=== PATIENT | female | born 1995 | race African-American/Black ===

== ENCOUNTER 2022-01-19 19:20 | Observation (INO) | payer BC, SELFPAY ==
--- NOTE | ~2022-01-19 | US_ITS ---
EXAMINATION: US pelvic complete w TV DATE: 01/19/2022 22:41 INDICATION: Vaginal bleeding. LMP 12/01/2021. Gestational age by LMP 7 weeks 0 days. ADRIAN by LMP 09/07/19 23. TECHNIQUE: Multiple transabdominal and endovaginal sonographic images of the pelvis were obtained. COMPARISON: None. FINDINGS: Uterus: 8.6 x 4.6 x 5.2 cm. Endometrial complex measures 1.7 cm. No intrauterine gestational sac. Right Ovary: 3.2 x 1.8 x 1.8 cm. Vascular flow is present. Gestational sac present in the right adnex a with a yolk sac and a pole, crown-rump length 0.94 cm corresponding to 7 weeks 0 days. heart rate 145 bpm. Left Ovary: 2.4 x 1.6 x 1.2 cm. Vascular flow is present. There is no free fluid in the pelvis. IMPRESSION: 1. Ectopic located in the right adnexa. 2. Single living fetus within the ectopic gestational sac, gestational age 7 weeks 0 days, hear t rate 145 BPM. 3. No intrauterine gestational sac. Results reported telephonically to Gibran Golden APRN by Dr. Starkey at 11:01 PM on 01/19/2022. Reviewed, dictated and finalized at location K. IMPRESSION: 1. Ectopic located in the right adnexa. 2. Single living fetus within the ectopic gestational sac, gestational age 7 we eks 0 days, heart rate 145 BPM. 3. No intrauterine gestational sac. Results reported telephonically to Gibran Golden APRN by Dr. Starkey at 11:01 PM on 01/19/2022.
[2022-01-19 19:57] VITALS: BP 123/89; PULSE 80; RESP 16; TEMP 36.5; O2SAT 100
[2022-01-19 20:18] LABS: Basophils Percent Auto 0.2 % (0.2-1.2); Eosinophils Absolute Auto 0.1 K/mm3 (0-0.3); Eosinophils Percent Auto 1.1 % (0-4.4); Hematocrit 37.1 % (37.0-47.0); Hemoglobin 12.3 g/dL (12.0-15.0); Immature Granulocyte Absolute 0.02 K/mm3 (0.00-0.031); Immature Granulocyte Percent A 0.2 % (0-0.5); Lymphocytes Absolute Auto 3.07 K/mm3 (0.9-3.2); Lymphocytes Percent Auto 31.3 % (18.3-44.2); Mean Corpuscular HGB Conc 33.2 g/dl (32-36); Mean Corpuscular Hemoglobin 31.1 pg (26-34); Mean Corpuscular Volume 93.9 fl (80-100); Mean Platelet Volume 9.3 fl (7.4-10.4); Monocytes Absolute Auto 0.4 K/mm3 (0.1-0.6); Monocytes Percent Auto 4.4 % (2.6-8.5); Neutrophils Absolute Auto 6.2 K/mm3 (1.3-6.7); Neutrophils Percent Auto 62.8 % (45.5-73.1); Platelet Count Result 318 k/mm3 (150-375); Red Blood Count 3.95 M/mm3 (4.2-5.4); Red Cell Distribution Width 13.2 % (11.5-14.5); White Blood Count 9.8 K/mm3 (4.5-10.0)
[2022-01-19 21:07] VITALS: BP 117/89; PULSE 76; RESP 21; O2SAT 100
--- NOTE | 2022-01-19 21:42 | ED.PREGNANCY ---
HPI - General Chief complaint: Vaginal Bleeding Stated complaint: , bleeding, cramping Time Seen by Provider: 01/19/22 21:04 History of Present Illness HPI Narrative: 19-year-old female presented to the emergency room for evaluation of lower abdominal cramping and possible vaginal bleeding. Patient states that she is 8 weeks , and noticed a 1 drop of bright red blood on her underwear earlier this afternoon. Patient states the cramping has resolved since she has been waiting in the waiting room. Patient reports she is receiving regular [facility] HE[facility] CLINICAL NURSE SPECIALIST care, and is currently on progesterone to thicken her uterine lining. Patient is a G3, P0. Related Data Allergies Allergy/AdvReac Type Severity Reaction Status Date / Time No Known Allergies Allergy Verified 01/19/22 20:01 Review of Systems Review of Systems: CONSTITUTIONAL: Denies fever, chills, or sweats. EYES: Denies visual changes, redness, or discharge. ENT: Denies rhinorrhea, congestion, sore throat, or otalgia. CARDIOVASCULAR: Denies chest pain, palpitations, or edema. RESPIRATORY: Denies cough or dyspnea. GASTROINTESTINAL: Denies abdominal pain, nausea, vomiting, or diarrhea. GENITOURINARY: Denies dysuria or hematuria. SKIN: Denies rash or itching. MUSCULOSKELETAL: Denies back pain, joint pain, or myalgia. NEUROLOGIC: Denies headache, numbness, dizziness, or weakness. PSYCHIATRIC: Denies anxiety or depression. Exam Narrative: GENERAL: Well-appearing, well-nourished, no physical limitations, and in no acute distress. HEAD: Normocephalic, atraumatic. EYES: Conjunctivae normal, PERRLA and EOMI. CHEST: Clear to auscultation. No respiratory distress. No wheezes rales or rhonchi. No tenderness. HEART: Regular rate and rhythm. No murmur heard. Normal peripheral pulses. ABDOMEN: Soft, nontender, nondistended, normal active bowel sounds. : Deferred BACK: No CVA tenderness EXTREMITIES: Normal range of motion. No edema. No clubbing or cyanosis SKIN: Warm, dry, no rash. No noted wounds NEURO: No focal deficits. Alert and oriented x3. MAEW. CN's II-XI intact bilaterally, normal gait PSYCH: Cooperative. Normal mood and affect. Course Vital Signs Vital signs: Vital Signs Temperature 36.5 C 01/19/22 19:57 Pulse Rate 80 01/19/22 19:57 Respiratory Rate 16 01/19/22 19:57 Blood Pressure 123/89 01/19/22 19:57 Pulse Oximetry 100 01/19/22 19:57 Oxygen Delivery Room Air 01/19/22 19:57 Temperature 36.5 C 01/19/22 19:57 Pulse Rate 75 01/20/22 01:11 Respiratory Rate 16 01/20/22 01:11 Blood Pressure 120/80 01/20/22 01:11 Pulse Oximetry 100 01/20/22 01:11 Oxygen Delivery Room Air 01/19/22 21:07 MDM - OB/Uterine Contractions MDM Narrative Medical decision making narrative: Discussed case with Dr. Moseley. He recommends patient be admitted for observation and he will follow-up with her in the morning about appropriate care. Discussed case with patient she is understanding and agreeable to the treatment plan. Lab Data Result diagrams: 01/19/22 20:07 Labs: Lab Results 01/19/22 01/19/22 01/19/22 Range/Units 20:07 20:07 23:12 WBC 9.8 (4.5-10.0) K/mm3 RBC 3.95 L (4.2-5.4) M/mm3 Hgb 12.3 (12.0-15.0) g/dL Hct 37.1 (37.0-47.0) % MCV 93.9 (80-100) fl MCH 31.1 (26-34) pg MCHC 33.2 (32-36) g/dl RDW 13.2 (11.5-14.5) % Plt Count 318 (150-375) k/mm3 MPV 9.3 (7.4-10.4) fl Immature Gran % (Auto) 0.2 (0-0.5) % Neut % (Auto) 62.8 (45.5-73.1) % Lymph % (Auto) 31.3 (18.3-44.2) % Cross % (Auto) 4.4 (2.6-8.5) % Eos % (Auto) 1.1 (0-4.4) % Baso % (Auto) 0.2 (0.2-1.2) % Lymph # (Auto) 3.07 (0.9-3.2) K/mm3 Cross # (Auto) 0.4 (0.1-0.6) K/mm3 Eos # (Auto) 0.1 (0-0.3) K/mm3 Baso # (Auto) 0.0 (0.0-0.1) K/mm3 Abs Immat Gran (auto) 0.02 (0.00-0.031) K/mm3 Absolute Neuts (auto) 6.2 (1.3-6.7) K/mm3 Absolute Nucleated R
[2022-01-20] VITALS (46 sets, daily range): BP systolic 98–146; BP diastolic 56–90; PULSE 71–104; RESP 14–29; TEMP 36.4–36.9; O2SAT 94–100
--- NOTE | 2022-01-20 02:00 | PC.NURSE ---
Pt and asked why they won't see Doctor tonlin and what is the point of staying over night. RN told patient and that she is stable condition but need to be cautious need to be observe over night. Dr. Moseley will come to see pt in AM to discussed treatment option. Pt and request to be sent home but want to see what doctor says. Called Dr. Moseley and made aware of pt request. Advised to stay over night and see him in AM or need to sign AMA. Spoke to Pt and explained purpose of her stay and Dr. Moseley will come to see her early this AM. Pt agreed to stay and verbalized understanding.
[2022-01-20] MEDS: SODIUM CHLORIDE 0.9% IV 1,000 ML 125 ML IV CONT ×2 (02:50→10:28)
--- NOTE | 2022-01-20 07:37 | PM.IMHP ---
H&P: HPI History of Present Illness Date/Time: 01/20/22 07:37 Chief Complaint: ectopic Narrative: 27 yo who presented to the ED with complaints of pelvic pain and vaginal spotting. Pt states she had a positive test earlier this month. She is a [employer] and states that at work she was moving a sign and noticed an acute onset right sided pelvic pain. She states the pain continued throughout the night. She then noticed an episode of vaginal spotting which prompted her to [place] [id number]. Pelvic US showed a right adnexal ectopic with embryo measuring 7w0d and FHT af 145 bpm. Pt remined hemodynamically stable. She states her pain has resolved. Review of Systems Cardiovascular: Cardiovascular: Denies chest pain, Denies leg edema, Denies palpitations, Denies dyspnea and Denies dyspnea on exertion Respiratory: Respiratory: Denies cough, Denies dyspnea and Denies dyspnea on exertion Gastrointestinal: Gastrointestinal: Denies abdominal pain, Denies constipation, Denies diarrhea, Denies nausea and Denies vomiting Genitourinary: Genitourinary: Denies hematuria, Denies urinary frequency, Denies dysuria, Denies pelvic pain, Denies urinary incontinence and Denies vaginal discharge Neurologic: Reports system reviewed and no additional complaints, except as documented Psychiatric: Psychiatric: Reports no additional psychiatric complaints Endocrine: Endocrine: Denies palpitations Meds Home Medications and Allergies Allergies Allergy/AdvReac Type Severity Reaction Status Date / Time No Known Allergies Allergy Verified 01/19/22 20:01 Vital Signs Vital Signs - 24 hr 01/19/22 19:57 01/19/22 21:07 01/20/22 00:54 Temperature 36.5 C Pulse Rate 80 76 72 Respiratory Rate 16 21 H 16 Blood Pressure 123/89 117/89 116/70 Pulse Oximetry 100 100 98 Oxygen Delivery Room Air Room Air 01/20/22 01:11 01/20/22 02:46 01/20/22 01:54 Temperature Pulse Rate 75 72 Respiratory Rate 16 16 Blood Pressure 120/80 120/80 Pulse Oximetry 100 100 Oxygen Delivery Room Air 01/20/22 01:58 01/20/22 07:34 Temperature Pulse Rate 74 82 Respiratory Rate Blood Pressure 117/72 121/69 Pulse Oximetry 100 Oxygen Delivery Exam Const: General: no acute distress Eyes: EOM: EOMs intact bilaterally Neck: Neck: supple Thyroid: thyroid normal Chest: Breast/axilla inspection: normal inspection of the breasts Breast/axilla palpation: normal palpation of the breasts, normal palpation of the axillae and no axillary lymphadenopathy Resp: Effort & Inspection: normal respiratory effort Auscultation: clear to auscultation bilaterally Cardio: Rate: regular rate Rhythm: regular rhythm GI: Inspection: non-distended GI Palp: Yes Soft to palpation, No Tenderness to palpation present (GI) and No Guarding due to palpation present (GI) Auscultation: normal bowel sounds : General: No bladder normal to palpation External Female Exam: normal external appearance Speculum Exam - Vagina: normal vaginal discharge and No vaginal bleeding Speculum Exam - Cervix: nontender Bimanual exam- vagina & uterus: No bladder normal to palpation and No Cervical tenderness present OB/external & speculum: No vaginal bleeding Skin: General skin exam: normal color and no rashes or lesions noted Neuro: Cognition (Neuro): normal cognition Speech: normal speech Extrem: General: normal to inspection and no edema Psych: Mental Status: mental status grossly normal Affect: normal affect H&P: Results Labs Labs: Short CBC 01/19/22 Range/Units 20:07 WBC 9.8 (4.5-10.0) K/mm3 Hgb 12.3 (12.0-15.0) g/dL Hct 37.1 (37.0-47.0) % Plt Count 318 (150-375) k/mm3 Assessment and Plan Assessment and plan (1) Ectopic of right ovary: Code(s): O00.201 - Right ovarian without intrauterine Status: Acute Assessment and Plan: P
--- NOTE | 2022-01-20 07:43 | WPDHPUPDATE1 ---
History and Physical Update Update Date/Time: 01/20/22 07:43 History and Physical has been reviewed, including an updated exam of the patient. There are NO changes in the patient's condition. Risks, benefits, and alternatives have been discussed and questions answered. Patient agrees to proceed with procedure.
[2022-01-20 08:01] LABS: Add Urine Microscopic? YES; Appearance Urine Clear (Clear); Bilirubin Urine Negative (Negative); Blood Urine Negative (Negative); Color Urine Yellow (Yellow); Glucose Urine UA Negative (Negative); Ketones Urine Negative (Negative); Leukocyte Esterase Ur 1+ LEU/UL (Negative); Nitrate Urine Negative (Negative); Protein Urine Negative (Negative); Urobilinogen Urine 0.2 mg/dL (<2.0)
[2022-01-20 08:10] LABS: Mucus Urine Rare /lpf; RBC Urine 0-2 /hpf (0-2); Squamous Epithelial Cell Urine Occasional /hpf (Few); WBC Urine 0-3 /hpf
--- NOTE | 2022-01-20 13:00 | PC.NURSE ---
Cleveland Lopez RN SHARE in to speak with patient and .
--- NOTE | 2022-01-20 13:38 | PC.NURSE ---
Patient to preop per stretcher with in attendance.
--- NOTE | 2022-01-20 14:28 | WPDANESEPPF ---
Anes - Initial Pre Proc Eval Procedure: Operation Date: 01/20/22 15:00 Proposed Procedures p Laparoscopic Removal Right Ectopic - Karlo Moseley MD Date/Time: 01/20/22 14:28 Surgeon: Karlo Moseley MD Pre Op Diagnosis: Ectopic Patient Data Age: 27 Gender: F Height: 1.57 m Weight: 77.11 kg Last Vital Signs Temp 36.8 C 01/20/22 13:47 Pulse 74 01/20/22 13:47 Resp 16 01/20/22 13:47 BP 100/73 01/20/22 13:47 Pulse Ox 100 01/20/22 13:47 O2 Del Method Room Air 01/20/22 13:47 Allergies Allergy/AdvReac Type Severity Reaction Status Date / Time No Known Allergies Allergy Verified 01/19/22 20:01 Laboratory Tests 01/19/22 01/19/22 01/19/22 20:07 20:07 23:12 WBC 9.8 K/mm3 K/mm3 (4.5-10.0) RBC 3.95 M/mm3 L M/mm3 (4.2-5.4) Hgb 12.3 g/dL g/dL (12.0-15.0) Hct 37.1 % % (37.0-47.0) MCV 93.9 fl fl (80-100) MCH 31.1 pg pg (26-34) MCHC 33.2 g/dl g/dl (32-36) RDW 13.2 % % (11.5-14.5) Plt Count 318 k/mm3 k/mm3 (150-375) MPV 9.3 fl fl (7.4-10.4) Immature Gran % (Auto) 0.2 % % (0-0.5) Neut % (Auto) 62.8 % % (45.5-73.1) Lymph % (Auto) 31.3 % % (18.3-44.2) Ritchie % (Auto) 4.4 % % (2.6-8.5) Eos % (Auto) 1.1 % % (0-4.4) Baso % (Auto) 0.2 % % (0.2-1.2) Lymph # (Auto) 3.07 K/mm3 K/mm3 (0.9-3.2) Ritchie # (Auto) 0.4 K/mm3 K/mm3 (0.1-0.6) Eos # (Auto) 0.1 K/mm3 K/mm3 (0-0.3) Baso # (Auto) 0.0 K/mm3 K/mm3 (0.0-0.1) Abs Immat Gran (auto) 0.02 K/mm3 K/mm3 (0.00-0.031) Absolute Neuts (auto) 6.2 K/mm3 K/mm3 (1.3-6.7) Absolute Nucleated RBC 0.0 K/mm3 K/mm3 (0.0-0.012) Nucleated RBC % 0.0 % % (0.0-0.2) Beta HCG, Quant 18824.00 mIU/ML mIU/ML Urine Color Urine Appearance Urine pH Ur Specific [place] Urine Protein Urine Glucose (UA) Urine Ketones Ur Blood (Man) Urine Nitrate Urine Bilirubin Urine Urobilinogen Leukocyte Esterase Rfl Urine RBC Urine WBC Ur Squamous Epith Cells Urine Mucus Blood Type O Positive Antibody Screen Negative Screen TNP Baby's Blood Type Not Reportable Baby's LYNNE Not Reportable Doses of RhIg Required 0 01/20/22 07:48 WBC RBC Hgb Hct MCV MCH MCHC RDW Plt Count MPV Immature Gran % (Auto) Neut % (Auto) Lymph % (Auto) Ritchie % (Auto) Eos % (Auto) Baso % (Auto) Lymph # (Auto) Ritchie # (Auto) Eos # (Auto) Baso # (Auto) Abs Immat Gran (auto) Absolute Neuts (auto) Absolute Nucleated RBC Nucleated RBC % Beta HCG, Quant Urine Color Yellow (Yellow) Urine Appearance Clear (Clear) Urine pH 6.0 (5.0-9.0) Ur Specific [place] 1.020 (1.001-1.035) Urine Protein Negative mg/dL mg/dL (Negative) Urine Glucose (UA) Negative mg/dL mg/dL (Negative) Urine Ketones Negative mg/dL mg/dL (Negative) Ur Blood (Man) Negative (Negative) Urine Nitrate Negative (Negative) Urine Bilirubin Negative (Negative) Urine Urobilinogen 0.2 mg/dL mg/dL (<2.0) Leukocyte Esterase Rfl 1+ PRESLEY/UL H PRESLEY/UL (Negative) Urine RBC 0-2 /hpf /hpf (0-2) Urine WBC 0-3 /hpf /hpf Ur Squamous Epith Cells Occasional /hpf /hpf (Few) Urine Mucus Rare /lpf /lpf Blood Type Antibody Screen Screen Baby's Blood Type Baby's LYNNE Doses of RhIg Required Patient hx anesthe
[2022-01-20] MEDS: LIDO 1%/EPINEPHRINE/PF 1:200,000 30 ML VIAL XX (15:16)
--- NOTE | 2022-01-20 16:22 | W.PM.PROC2 ---
Procedure Note - Detailed Date of Procedure 01/20/22 Pre-op Diagnosis Ectopic Post-op Diagnosis Same Procedure Performed right salpingectomy removal of right ectopic Surgeon Karlo Moseley MD Anesthesia General Indications right adnexal ectopic Findings Omental adhesions to the left pelvic sidewall at the level of the pelvic brim, right tubal ectopic , right ovary with corpus luteum cyst, left fallopian tube and ovary appear normal. Decidual change covering the uterine serosa Description of Procedure The patient was taken to the operating room where general endotracheal anesthesia was undertaken and found to be adequate. She was then prepped and draped in the dorsal lithotomy position and placed in adjustable stirrups. A pre-operative team brief and a time out were completed. A catheter was placed to drain the bladder. Retractors were placed placed in the vagina and the cervix was identified. An acorn uterine manipulator was placed. Attention was then turned to the abdomen which was anesthetized umbilically with injected anesthestic. A 10 mm skin incision was made in the umbilicus. A 5 mm optical trocar was then placed with direct camera visualization of the abdominal layers during placement. The trocar stylet was removed and the camera was used to verify intra-abdominal placement. CO2 insufflation was then connected and resumed. The pelvis was inspected. A left lower quadrant 5 mm port was placed, in addition to a right lower quadrant 5 mm port in the standard fashion after using local anesthetic. The pelvis was inspected. The above findings were noted. Omental adhesions were taken down to help identify the left adnexa. The right tubal was noted in the isthmic portion of the tube. Decision was made to attempt right salpingostomy. A linear incision was made along the rigth fallopian tube over the ectopic with monopolar scissors. The edge of the incision was grasped for stability. The was grasped and removed from the fallopian tube. The products of conception were removed from the abdomen and sent for pathology. The bed of the within the fallopian tube mucosa was noted to be bleeding. Hemostasis was attempted with monopolar cautery. After several attempts, the fallopian tube bed continued to bleeding. Given the amount of the bleeding and the tortuous course of the fallopian tube, decision was made to proceed with salpingectomy. The right fallopian tube was grasped at the level of the fimbriae. The fallopian tube was ligated and transected along the inferior mesosalpinx with a Ligasure device. The transection was carried out to the uterus. The fallopian tube was completely transected at the level of the uterine body. The surgical field was thoroughly irrigated using normal saline. All surgical beds were noted to be hemostatic. A Quan-Marv with Vicryl suture was used to close the umbilical 10 mm port under direct visualization. The abdomen was relieved of all CO2 gas. All remaining trocars were removed from the abdomen. Sponge, lap and needle counts were correct. All skin incisions were closed with 4-0 Vicryl suture subcuticularly. The uterine manipulator was removed from the uterus. Hemostasis of the cervix was noted. The patient was taken out of dorsal lithotomy position. Anesthesia was reversed. The patient was taken to the PACU. Estimated Blood Loss 150 Urine Output 100 Pathology Yes (right fallopian tube and products of conception) Complications No immediate complications Condition Stable Disposition PACU
[2022-01-20] MEDS: LACTATED RINGERS 1,000 ML 30 ML IV CONT ×2 (16:25)
[2022-01-20] MEDS: fentaNYL CITRATE INJ (*CRX) 100 MCG/2 ML VIAL 25 MCG IV PUSH ×8 (16:42→17:35)
--- NOTE | 2022-01-20 17:57 | PC.NURSE ---
Pt back from PACU. Assisted into bed.
--- NOTE | 2022-01-20 18:08 | PC.NURSE ---
Pt has tolerated water well in PACU. Pt c/o being hungry. Juice and a box lunch given to pt.
--- NOTE | 2022-01-20 18:14 | PC.NURSE ---
Pt became nauseated after drinking the juice from her fruit cup. Pt turned to right side and head of bed lowered.
--- NOTE | 2022-01-20 18:20 | PC.NURSE ---
Pt feeling better. [place] given.
--- NOTE | 2022-01-20 18:35 | PC.NURSE ---
Dr. Moseley informed of pt's nausea after trying to eat and pain is starting to return. Order received for Paul.
[2022-01-20] MEDS: HYDROcodone/acetaminophen (*CRX) 5-325 MG TABLET 1 TAB PO (18:48)
[2022-01-20] MEDS: ONDANSETRON HCL ODT 4 MG TABLET PO (18:49)
--- NOTE | 2022-01-22 07:19 | PM.DS ---
DS: Admitting Diagnosis Discharge Date 01/20/22 Admitting Diagnosis ectopic DS: Summary Hospital Course Hospital Course: 27 yo who was admitted after diagnosed with a right adnexal ectopic in the ED. Pt went on to have a laparoscopic right slapingectomy and removal of ectopic . Post operative course was uncomplicated and she was discharged the same day Time Spent with Patient Time attestation: Total time spent providing and/or coordinating discharge services: DS: Data Data Completed and Pending Pending studies at discharge: Pending at discharge 01/20/22 16:17 Surgical [PTH] Routine Surgical [PTH] Routine Discharge Plan Discharge Consulting providers: Vishal Stover ; Tu Starkey Discharging Clinician: Karlo Moseley Patient Disposition: Home, Self-Care Activity: as tolerated and pelvic rest Diet: regular Patient Instructions: Antibiotic Form, Ectopic (DC), Salpingectomy (DC) Stand Alone Forms: General Discharge Information, Work/School Release IP Follow-up/Referrals: Karlo Moseley MD [Physician] - 2 Weeks Discharge Medications: New hydrocodone-acetaminophen 5-325 mg tablet 1 tablet PO Q6H PRN (Reason: pain) Qty: 28 0RF ibuprofen 600 mg tablet 600 mg PO Q6H PRN (Reason: pain) Qty: 30 0RF Date of admission: 01/20/22 00:46 Primary Care Provider: PHYSICIAN NOT ON STAFF,NONSTAFF Admitting Provider: Karlo Moseley Attending physician on admission: Karlo Moseley Condition: Stable
== END 2022-01-20 20:00 | disposition home or self-care (01) ==
LOC: ANHED 01-20 00:49 → ANHOBPP 01-20 01:05
PROVIDERS: Emergency Medicine; Admitting Provider Student in an Organized Health Care Education/Training Program; Emergency Provider Nurse Practitioner Family; Visit Provider Student in an Organized Health Care Education/Training Program
PROC: (CPT 49320; principal; 2022-01-20 15:00)
DX: O00.201 Right ovarian pregnancy without intrauterine pregnancy (principal); Z3A.08 8 weeks gestation of pregnancy
CPT/HCPCS: 59151; 36415; 76830; 76856; 81001; 84702; 85025; 85461; 88302; 88305; 96360; 96361; 99285; A9270; G0378; J0330; J1100; J1170; J2250; J2405; J2704; J3010; J7030; J7120

== ENCOUNTER 2022-04-01 07:39 | Emergency (ER) | payer BC, SELFPAY ==
--- NOTE | ~2022-04-01 | XR_ITS ---
EXAMINATION: XR abdomen/kub 1V INDICATION: Abdominal pain TECHNIQUE: Supine views of the abdomen were obtained on 2 radiographs. COMPARISON: None FINDINGS: Visualization of the mid abdomen is obscured by jewelry. There is a moderate volume of colo cornelia stool. No dilated loops of bowel are seen. The visualized osseous structures are unremarkable. IMPRESSION: 1. Moderate volume of colonic stool. Reviewed, dictated and finalized at location B.
--- NOTE | ~2022-04-01 | CT_ITS ---
EXAMINATION: CT abdomen pelvis w con DATE: 04/01/2022 10:42 INDICATION: Left lower quadrant abdominal pain. TECHNIQUE: Computed tomography (CT) of the abdomen and pelvis was performed with 100 mL Omnipaque 350 intravenous contrast. Automated exposure control and iterative reconstruction technique were employe d. The dose-length product was 386.16 mGy-cm. COMPARISON: None. FINDINGS: The visualized portions of the lung bases demonstrate mild atelectasis. No pleural effusion . The heart size is normal. No pericardial effusion. The liver, gallbladder, spleen, pancreas, adrena l glands, and kidneys are normal. There are no dilated loops of bowel. The appendix is normal. There are no pathologically enlarged lymph nodes. There is a 2.5 cm dominant follicle in left ovary. There is physiologic fluid in the pelvis. There is mild lumbar spondylosis. IMPRESSION: 1. No specific etiology for the patient's symptoms. Reviewed, dictated and finalized at location A.
[2022-04-01 07:54] VITALS: BP 112/83; PULSE 64; RESP 14; TEMP 36.1; O2SAT 100
[2022-04-01 08:04] LABS: Basophils Percent Auto 0.1 % (0.2-1.2); Eosinophils Absolute Auto 0.1 K/mm3 (0-0.3); Eosinophils Percent Auto 0.6 % (0-4.4); Hematocrit 37.8 % (37.0-47.0); Hemoglobin 12.3 g/dL (12.0-15.0); Immature Granulocyte Absolute 0.02 K/mm3 (0.00-0.031); Immature Granulocyte Percent A 0.3 % (0-0.5); Lymphocytes Absolute Auto 2.55 K/mm3 (0.9-3.2); Lymphocytes Percent Auto 32.3 % (18.3-44.2); Mean Corpuscular HGB Conc 32.5 g/dl (32-36); Mean Corpuscular Hemoglobin 31.2 pg (26-34); Mean Corpuscular Volume 95.9 fl (80-100); Mean Platelet Volume 9.3 fl (7.4-10.4); Monocytes Absolute Auto 0.4 K/mm3 (0.1-0.6); Monocytes Percent Auto 5.1 % (2.6-8.5); Neutrophils Absolute Auto 4.9 K/mm3 (1.3-6.7); Neutrophils Percent Auto 61.6 % (45.5-73.1); Platelet Count Result 316 k/mm3 (150-375); Red Blood Count 3.94 M/mm3 (4.2-5.4); Red Cell Distribution Width 13.5 % (11.5-14.5); White Blood Count 7.9 K/mm3 (4.5-10.0)
[2022-04-01 08:21] LABS: Alanine Aminotransferase 16 U/L (6-35); Albumin Level 4.4 g/dL (3.5-5.1); Alkaline Phosphatase 65 U/L (38-126); Anion Gap 10 mmol/L (8-16); Aspartate Amino Transferase 26 U/L (14-36); Bilirubin,Total 0.5 mg/dL (0.2-1.3); Blood Urea Nitrogen 14 mg/dL (7-17); Calcium 9.1 mg/dL (8.4-10.2); Carbon Dioxide 26 mmol/L (22-30); Chloride 103 mmol/L (98-107); Estimated CRCL calculation 70 ml/min; Estimated Glomerular Filt Rate > 60; Glucose 83 mg/dL (65-110); Lipase 39 U/L (23-300); Sodium 139 mmol/L (137-145)
--- NOTE | 2022-04-01 08:29 | ED.GENADULT ---
HPI - General Adult General Chief complaint: Abdominal Pain Stated complaint: llq abd pain, previous surgery on fallop. tube Time Seen by Provider: 04/01/22 07:47 History of Present Illness HPI narrative: 27-year-old female presented the emergency department for evaluation of left lower quadrant pain. Patient states that she had an ectopic in January. Patient had lower abdominal pain in February which turned to be constipation. Patient states that her last bowel movement was approximately 1 to 2 weeks ago. Patient states this is not that unusual for her. Related Data Allergies Allergy/AdvReac Type Severity Reaction Status Date / Time No Known Allergies Allergy Verified 01/19/22 20:01 Review of Systems Review of Systems: CONSTITUTIONAL: Denies fever, chills, or sweats. EYES: Denies visual changes, redness, or discharge. ENT: Denies rhinorrhea, congestion, sore throat, or otalgia. CARDIOVASCULAR: Denies chest pain, palpitations, or edema. RESPIRATORY: Denies cough or dyspnea. GASTROINTESTINAL: Left lower quadrant pain, constipation GENITOURINARY: Denies dysuria or hematuria. SKIN: Denies rash or itching. MUSCULOSKELETAL: Denies back pain, joint pain, or myalgia. NEUROLOGIC: Denies headache, numbness, or weakness. [facility] Past Medical History Medical History (Updated 04/01/22 @ 10:59 by Scott Segundo MD) Obesity Exam Narrative: APPEARANCE: Well appearing, no pain, no distress, well-nourished. HEAD: normocephalic, atraumatic. EYES: PERRLA/EOMI, conjunctivae clear. NOSE: Normal no drainage THROAT: Pharynx clear, no exudate. NECK: Supple. No adenopathy, no masses. RESPIRATORY: Airway patent, respirations nonlabored. Clear to auscultation bilaterally, no rales, rhonchi, wheezing. CARDIOVASCULAR: Regular rate and rhythm without murmurs rubs or gallops. ABDOMINAL: Left lower quadrant abdominal tenderness to palpation. Normal bowel sounds. MUSCULOSKELETAL: Moves all extremities. Strength/ROM intact, No edema, No calf tenderness. NEURO: Alert. Cranial nerves II through XII intact. Grossly intact SKIN: Warm, dry. Normal Color Course Course Emergency Course: X-ray of the abdomen showed evidence of constipation. CT scan was ordered to rule out any postop complication. Labs are within normal limits. Patient was updated on the results of the CT scan and additional work-up. All questions and concerns were addressed. Vital Signs Vital signs: Vital Signs Temperature 97.0 F L 04/01/22 07:54 Pulse Rate 64 04/01/22 07:54 Respiratory Rate 14 04/01/22 07:54 Blood Pressure 112/83 04/01/22 07:54 Pulse Oximetry 100 04/01/22 07:54 Temperature 97.0 F L 04/01/22 07:54 Pulse Rate 64 04/01/22 07:54 Respiratory Rate 14 04/01/22 07:54 Blood Pressure 112/83 04/01/22 07:54 Pulse Oximetry 100 04/01/22 07:54 Medical Decision Making Vital Signs Vital Signs: Vital Signs Temperature 97.0 F L 04/01/22 07:54 Pulse Rate 64 04/01/22 07:54 Respiratory Rate 14 04/01/22 07:54 Blood Pressure 112/83 04/01/22 07:54 Pulse Oximetry 100 04/01/22 07:54 Temperature 97.0 F L 04/01/22 07:54 Pulse Rate 64 04/01/22 07:54 Respiratory Rate 14 04/01/22 07:54 Blood Pressure 112/83 04/01/22 07:54 Pulse Oximetry 100 04/01/22 07:54 Lab Data Lab results reviewed: Yes I reviewed the patient's lab results. Result diagrams: 04/01/22 08:00 04/01/22 08:00 Labs: Lab Results 04/01/22 04/01/22 04/01/22 Range/Units 08:00 08:00 10:16 WBC 7.9 (4.5-10.0) K/mm3 RBC 3.94 L (4.2-5.4) M/mm3 Hgb 12.3 (12.0-15.0) g/dL Hct 37.8 (37.0-47.0) % MCV 95.9 (80-100) fl MCH 31.2 (26-34) pg MCHC 32.5 (32-36) g/dl RDW 13.5 (11.5-14.5) % Plt Count 316 (150-375) k/mm3 MPV 9.3 (7.4-10.4) fl Immature Gran % (Auto) 0.3 (0-0.5) % Neut % (Auto) 61.6 (45.5-73.1) % Lymph % (Auto) 32.3 (18.3-44.2) % Mo
[2022-04-01] MEDS: SODIUM CHLORIDE 0.9% IV 1,000 ML 999 ML IV CONT (09:05)
[2022-04-01 10:29] LABS: Appearance Urine Clear (Clear); Bilirubin Urine Negative (Negative); Blood Urine Negative (Negative); Color Urine Yellow (Yellow); Glucose Urine UA Negative (Negative); Ketones Urine Negative (Negative); Leukocyte Esterase Ur Negative LEU/UL (Negative); Nitrate Urine Negative (Negative); Protein Urine Negative (Negative); Urobilinogen Urine 0.2 mg/dL (<2.0)
[2022-04-01 10:34] LABS: Add Urine Microscopic? NO
== END 2022-04-01 11:22 | disposition home or self-care (01) ==
PROVIDERS: Emergency Provider Emergency Medicine
DX: K59.00 Constipation, unspecified (principal); E66.9 Obesity, unspecified; Z68.30 Body mass index [BMI] 30.0-30.9, adult
CPT/HCPCS: 36415; 74018; 74177; 80053; 81003; 81025; 83690; 85025; 96360; 99284; J7030; Q9967

== ENCOUNTER 2023-09-22 11:03 | Outpatient (CLI) | payer OTHER, SELFPAY ==
[2023-09-22 12:34] LABS: HIV 1/2 Ab P24 Ag Result Negative (Negative)
[2023-09-22 13:08] LABS: Hepatitis B Surface Antigen Negative (Negative)
[2023-09-22 13:16] LABS: HAV RESULT Negative (Negative); Hepatitis B Core IgM Result Negative (Negative)
[2023-09-22 13:26] LABS: Hepatitis C Virus Antibody Negative (Negative)
[2023-09-23 15:12] LABS: Rapid Plasma Reagin Non-Reactive (NonReactive)
== END 2023-09-22 11:04 | disposition home or self-care (01) ==
LOC: ANHLAB 11:04
PROVIDERS: Visit Provider Student in an Organized Health Care Education/Training Program
DX: Z11.3 Encounter for screening for infections with a predominantly sexual mode of transmission (principal)
CPT/HCPCS: 36415; 80074; 86592; 86695; 86696; 86703; G0432

== ENCOUNTER 2024-01-31 11:46 | Outpatient (CLI) | payer OTHER, SELFPAY ==
[2024-01-31 12:55] LABS: HIV 1/2 Ab P24 Ag Result Negative (Negative)
[2024-01-31 16:12] LABS: Hepatitis B Surface Antigen Negative (Negative)
[2024-01-31 16:17] LABS: HAV RESULT Negative (Negative); Hepatitis B Core IgM Result Negative (Negative)
[2024-01-31 16:29] LABS: Hepatitis C Virus Antibody Negative (Negative)
[2024-01-31 19:09] LABS: Rapid Plasma Reagin Non-Reactive (NonReactive)
== END 2024-01-31 11:47 | disposition home or self-care (01) ==
LOC: ANHLAB 11:47
PROVIDERS: Visit Provider Student in an Organized Health Care Education/Training Program
DX: Z20.2 Contact with and (suspected) exposure to infections with a predominantly sexual mode of transmission (principal)
CPT/HCPCS: 36415; 80074; 86592; 86695; 86696; 86703; G0432

== ENCOUNTER 2024-03-27 02:02 | Emergency (ER) | payer OTHER, SELFPAY ==
[2024-03-27 02:10] VITALS: BP 132/80; PULSE 70; RESP 16; TEMP 36.4; O2SAT 100
--- NOTE | 2024-03-27 02:42 | ED.GENADULT ---
HPI - General Adult General Chief complaint: Skin/Abscess/Foreign Body Stated complaint: rash Time Seen by Provider: 03/27/24 02:15 History of Present Illness HPI narrative: This is a 29-year-old female presenting with itchy rash on the inside of her right arm. Rash started about 1 day ago. 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 Patient has no other complaints. No history of eczema. No known allergies. 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 Sibling No problems noted. Social History Social History Smoking status: Never smoker Second hand tobacco smoke exposure: Yes Alcohol intake: current Alcohol use details: occasional Substance use: never Substance use type: does not use Do You Feel Safe in your Home?: Yes Lack of Transportation: No Lack of Food: Never True Current Housing: I Have Housing Concerned About Future Housing: Decline to Answer Difficulty Paying Gas/Electric Bills: Decline to Answer Difficulty Paying for Meds: Decline to Answer Currently Unemployed: Decline to Answer Education: Bachelor's Degree Difficulty w/ Childcare or Family Care: No Living arrangements: alone Occupation/Education: occupation 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 Head: atraumatic. EYES: EOMI, NOSE: Atraumatic NECK: Trachea midline RESPIRATORY: No increased rate of breathing CARDIOVASCULAR: RRR, ABDOMINAL: Non-distended MUSCULOSKELETAl: No obvious deformities NEURO: Alert. Moving 4/4 extremities SKIN:: Several small hives to the inside of the right arm PSYCHIATRIC: Normal affect Course Vital Signs Vital signs: Vital Signs Temperature 97.6 F 03/27/24 02:10 Pulse Rate 70 03/27/24 02:10 Respiratory Rate 16 03/27/24 02:10 Blood Pressure 132/80 03/27/24 02:10 Pulse Oximetry 100 03/27/24 02:10 Oxygen Delivery Room Air 03/27/24 02:10 Temperature 97.6 F 03/27/24 02:10 Pulse Rate 70 03/27/24 02:10 Respiratory Rate 16 03/27/24 02:10 Blood Pressure 132/80 03/27/24 02:10 Pulse Oximetry 100 03/27/24 02:10 Oxygen Delivery Room Air 03/27/24 02:10 Medical Decision Making MDM Narrative Medical decision making narrative: -Course: 29-year-old female presenting with a small itchy rash inside her right arm. patient is concerned for scabies infection. She will be discharged with permethrin Benadryl and Zyrtec prescriptions. She can follow up with her primary care physician for further management -DDX includes but is not limited to: dermatitis, scabies, allergic reaction, eczema, bug bite -Interventions: Zyrtec -Shared decision making / Disposition: discharge -RX permethrin, Benadryl, Zyrtec Vital Signs Vital Signs: Vital Signs Temperature 97.6 F 03/27/24 02:10 Pulse Rate 70 03/27/24 02:10 Respiratory Rate 16 03/27/24 02:10 Blood Pressure 132/80 03/27/24 02:10 Pulse Oximetry 100 03/27/24 02:10 Oxygen Delivery Room Air 03/27/24 02:10
== END 2024-03-27 02:55 | disposition home or self-care (01) ==
PROVIDERS: Emergency Provider Emergency Medicine
DX: L50.9 Urticaria, unspecified (principal); E66.9 Obesity, unspecified; Z68.28 Body mass index [BMI] 28.0-28.9, adult; Z90.79 Acquired absence of other genital organ(s)
CPT/HCPCS: 99283

== ENCOUNTER 2024-09-01 12:55 | Outpatient (CLI) | payer OTHER, SELFPAY ==
--- NOTE | 2024-09-01 | ECHO_ITS ---
Patient Info Name: Nadia Donahue Age: 29 years : 1995 Gender: Female Ht: 62 in Wt: 162 lbs BSA: 1.82 m2 HR: 70 bpm BP: 100 / 80 mmHg Heart Rhythm: Sinus Rhythm Technical Quality: Excellent Exam Date: 09/01/2024 1:18 PM Exam Location: Echo Lab Patient Status: Outpatient Admit Date: 09/01/2024 Staff Ordering Physician: CristianAlex MD Zipper Setter: Denise Swain RDCS Attending Provider: Marina, Alex Spence MD Referring Physician: Cristian BAER; Exam Type: CA echo doppler color flow Study Info Indications - Murmur Complete two-dimensional, color flow and Doppler transthoracic echocardiogram is performed. Summary 1. Complete two-dimensional, color flow and Doppler transthoracic echocardiogram is performed. 2. Left ventricular chamber dimension is normal. 3. Left ventricular systolic function is normal, estimated at 60-65%. 4. The left ventricular diastolic function is normal. 5. E/e' 6 is not elevated. 6. There is trace mitral valve regurgitation. 7. There is trace tricuspid valve regurgitation. 8. No pulmonary hypertension, estimated pulmonary arterial systolic pressure is 38 mmHg. 9. There is trace pulmonic regurgitation. Left Ventricle Left ventricular chamber dimension is normal. Left ventricular systolic function is normal, estimated at 60-65%. The left ventricular diastolic function is normal. E/e' 6 is not elevated. Right Ventricle Right ventricular systolic function is normal and with normal TAPSE 2.1 cm. Right ventricular chamber dimension is normal. Left Atria Left atrial chamber dimension is normal. Right Atria Right atrial chamber dimension is normal. Aortic Valve The aortic valve is trileaflet. There is no aortic valve stenosis. There is no aortic valve regurgitation. Pulmonic Valve There is trace pulmonic regurgitation. Mitral Valve There is no mitral valve stenosis. There is trace mitral valve regurgitation. Tricuspid Valve There is trace tricuspid valve regurgitation. No pulmonary hypertension, estimated pulmonary arterial systolic pressure is 38 mmHg. Pericardium/Pleural There is no pericardial effusion. Inferior Vena Cava Normal inferior vena cava with >50% collapse upon inspiration consistent with normal right atrial pressure, 5 mmHg. Aorta The aortic root size at the sinus of Valsalva is normal. Left Ventricular Outflow Tract Name Value Normal LVOT 2D LVOT Diameter 1.8 cm LVOT Doppler LVOT Peak Gradient 6 mmHg LVOT Mean Gradient 3 mmHg LVOT VTI 27 cm LVOT VTI/AV VTI Ratio 1.0 LVOT Stroke Volume 70 ml LVOT CO 4.6 l/min LVOT CI 2.5 l/min/m2 Pulmonic Valve Name Value Normal PV Doppler PV Peak Gradient 4 mmHg PV Regurgitation Doppler ND Peak End Diastolic Velocity 90 cm/s Mitral Valve Name Value Normal MV Doppler MV Peak Gradient 5 mmHg MV Mean Gradient 2 mmHg MV Decel [place] 581 cm/s2 MV PHT 54 ms MV Area (PHT) 4.1 cm2 4.0-5.0 MV Area (Cont Eq VTI) 2.3 cm2 MV Regurgitation Doppler MR Peak Gradient 32 mmHg MV Diastolic Function MV E Peak Velocity 108 cm/s MV A Peak Velocity 46 cm/s MV E/A 2.4 MV Decel Time 186 ms MV Annular TDI MV E/e' (Septal) 6.6 <=8.0 MV E/e' (Lateral) 6.3 <=8.0 MV E/e' (Average) 6.5 Tricuspid Valve Name Value Normal TV Regurgitation Doppler TR Peak Velocity 287 cm/s TR Peak Gradient 25 mmHg Estimated PAP/RSVP RA Pressure 5 mmHg <=5 PA Systolic Pressure 38 mmHg <36 RV Systolic Pressure 38 mmHg <36 Aortic Valve Name Value Normal AV Doppler AV Peak Velocity 128 cm/s AV Peak Gradient 7 mmHg AV Mean Gradient 4 mmHg AV VTI 29 cm AV Area (Cont Eq VTI) 2.5 cm2 >=3.0 AV Area (Cont Eq Imtiaz) 2.4 cm2 AV Regurgitation 2D LVOT Area 2.6 cm2 Ventricles Name Value Normal LV Dimensions 2D/MM IVS Diastolic Thickness (2D) 0.6 cm 0.6-1.0 LVID Diastole (2D) 5.0 cm 3.8-5.2 LVIW Diastolic Thickness (2D) 0.7 cm 0.6-0.9 LVID Systole (2D) 3.5 cm 2.2-3.5 LVOT Diameter 1.8 cm LV Mass (2D Cubed) 105.50 g 67.00-162.00 LV Mass Index (2D Cubed) 58 g/m2 43-95 Relative Wall Thickness (2D) 0.29 LV Fractional Shortening/Ejection Fraction 2D/MM LV Fractional Shortening (2D) 30 % 27-45 LV EF (2D Teichgregorioz) 57 % 54-74 LV Diastolic Volume (4C MOD) 125 ml LV EF (4C MOD) 60 % LV Diastolic Length (4C) 8.0 cm LV Systolic Length (4C) 6.5 cm LV Stroke Volume (4C MOD) 75 ml Atria Name Value Normal LA Dimensions LA Volume (4C A-L) 49 ml RA Dimensions RA Area (4C) 19.4 cm2 <=18.0 Report Signatures
--- OUTSIDE RECORDS SUMMARY | 2024-09-01 12:59 | XMS_ITS | Patient Health Record ---
Author Organization [facility] [place] Address [address] [place] [address] Care Team Providers Care Forklift Picker Name Role Phone Edinson Ayala Unavailable [phone] ALLERGIES No Known Allergies REASON FOR REFERRAL No Information SOCIAL HISTORY Tobacco Use: Social History Observation Description Date Details (start date - stop date) Never Smoker NA - NA Sex Assigned At : Social History Observation Description Sex Assigned At Unknown Tobacco Use/Smoking Question Answer Notes Are you a nonsmoker PROBLEMS Problem Type ICD Code Onset Dates Problem Status W/U Status Risk SNOMED Code Notes Problem Cervicalgia (M54.2) Active confirmed Cervicalgia (69934574) Problem Herniated nucleus pulposus, C6-7 (M50.223) Active confirmed Displacement of cervical intervertebral disc without myelopathy (75130224) Problem Neck pain on right side (M54.2) Active confirmed Neck pain (80496656) PLAN OF TREATMENT No Information MEDICATIONS ADMINISTERED Medication Instructions Date of Administration Dosage Notes Bilateral C7 SNRI 08/24/2022 Right C7 SNRI 08/10/2022 MEDICAL (GENERAL) HISTORY Medical History History ICD Code high blood pressure bladder infections headaches irritable bowel syndrome
--- OUTSIDE RECORDS SUMMARY | 2024-09-01 12:59 | XMS_ITS | Data Portability ---
Author Organization [facility], Main Office Address [address] [place] [address] Assessment No assessment recorded. Plan of Treatment Reminders Order Date Submit Date Provider Last Modified By Organization Details Last Modified Time Details Appointments None recorded. Lab CBC w/ auto diff [address], [address] [place], [address], 4 12:36:46 CMP, serum or plasma [address], [address] [place], [address], 4 12:36:46 lipid panel, serum [address], [address] [place], [address], 4 12:36:46 TSH, serum or plasma 2024 025 [facility] (Lab), [address] [place], [address], 5 13:29:30 Referral None recorded. Procedures None recorded. Surgeries None recorded. Imaging US, echocardio gram 2023 024 [email or web address] [facility] [address], [address] [place], [address], 4 14:26:23 US, echocardio gram, transthora cic, complete - Please call patient to schedule. 2024 025 [facility], [address], [place], [address], 17:35:27 Medication Orders pantoprazo le 40 mg tablet,del ayed release 2023 024 [email or web address] [id number], [address], [place], [place], [id number], 12:04:08 Patient TargetsNo targets recorded. Patient InstructionsNo instructions recorded. Reason for Referral None Reported. Results Created Date Observation Date Name Description Value Unit Range Abnormal Flag Note LastModifiedBy Organization Detail LastModifiedTime 06/23/2006/23/2022 rapid flu (A+B) Flu A positi ve Not Available [facility] [address] [place], [address], 06/23/2022 16:51:42 06/23/20 22 06/23/2022 rapid flu (A+B) Flu B negati ve Not Available [facility] Internal [facility] [address] [place], [address], 06/23/2022 16:51:42 02/10/20 24 02/10/2024 CBC/C OMPLE TE BLD COUNT W/DIF F white blood cells 6.4 x10'3 /uL 4.2-10 .8 Not Available [facility] (Lab) [address] [place], [address], 02/10/2024 20:24:51 02/10/20 24 02/10/2024 CBC/C OMPLE TE BLD COUNT W/DIF F red blood cells 4.25 x10'6 /uL 3.80-5 .20 Not Available [facility] (Lab) [address] [place], [address], 02/10/2024 20:24:51 02/10/20 24 02/10/2024 CBC/C OMPLE TE BLD COUNT W/DIF F hemoglobin 13.6 g/dL 12.0-1 5.6 Not Available [facility] (Lab) [address] [place], [address], 02/10/2024 20:24:51 02/10/20 24 02/10/2024 CBC/C OMPLE TE BLD COUNT W/DIF F hematocrit 41.8 % 35.7-4 5.7 Not Available [facility] (Lab) [address] [place], [address], 02/10/2024 20:24:51 02/10/20 24 02/10/2024 CBC/C OMPLE TE BLD COUNT W/DIF F mean red cell volume 98.4 fL 82.0-9 9.0 Not Available [facility] (Lab) [address] [place], [address], 02/10/2024 20:24:51 02/10/20 24 02/10/2024 CBC/C OMPLE TE BLD COUNT W/DIF F mean red cell hemoglobin 32.0 pg 27.0-3 3.0 Not Available [facility] (Lab) [address] [place], [address], 02/10/2024 20:24:51 02/10/20 24 02/10/2024 CBC/C OMPLE TE BLD COUNT W/DIF F mean RBC HGB concentratio n 32.5 g/dL 31.0-3 6.0 Not Available [facility] (Lab) [address] [place], [address], 02/10/2024 20:24:51 02/10/20 24 02/10/2024 CBC/C OMPLE TE BLD COUNT W/DIF F red cell distribution width 13.3 % 11.8-1 5.5 Not Available [facility] (Lab) [address] [place], [address], 02/10/2024 20:24:51 02/10/20 24 02/10/2024 CBC/C OMPLE TE BLD COUNT W/DIF F platelets 330 x10'3 /uL 150-40 0 Not Available [facility] (Lab) [address] [place], [address], 02/10/2024 20:24:51 02/10/20 24 02/10/2024 CBC/C OMPLE TE BLD COUNT W/DIF F mean platelet volume 10.2 fL 9.0-12 .4 Not Available [facility] (Lab) [address] [place], [address], 02/10/2024 20:24:51 02/10/20 24 02/10/2024 CBC/C OMPLE TE BLD COUNT W/DIF F neutrophils 60.5 % 39.0-7 2.0 Not Available [facility] (Lab) [address] [place], [address], 02/10/2024 20:24:51 02/10/20 24 02/10/2024 CBC/C OMPLE TE BLD COUNT W/DIF F lymphocytes 32.6 % 16.0-4 7.0 Not Available [facility] (Lab) [address] [place], [address], 02/10/2024 20:24:51 02/10/20 24 02/10/2024 CBC/C OMPLE TE BLD COUNT W/DIF F monocytes 5.4 % 5.0-12 .0 Not Available [facility] (Lab) [address] [place], [address], 02/10/2024 20:24:51 02/10/20 24 02/10/2024 CBC/C OMPLE TE BLD COUNT W/DIF F eosinophils 1.1 % 1.0-7. 0 Not Available [facility] (Lab) [address] [place], [address], 02/10/2024 20:24:51 02/10/20 24 02/10/2024 CBC/C OMPLE TE BLD COUNT W/DIF F basophils 0.2 % 0.0-2. 0 Not Available [facility] (Lab) [address] [place], [address], 02/10/2024 20:24:51 02/10/20 24 02/10/2024 CBC/C OMPLE TE BLD COUNT W/DIF F immature granulocytes 0.2 % 0.00-0 .50 Not Available [facility] (Lab) [address] [place], [address], 02/10/2024 20:24:51 02/10/20 24 02/10/2024 CBC/C OMPLE TE BLD COUNT W/DIF F neutrophils, absolute count 3.90 x10'3 /uL 1.5-8. 0 Not Available [facility] (Lab) [address] [place], [address], 02/10/2024 20:24:51 02/10/20 24 02/10/2024 CBC/C OMPLE TE BLD COUNT W/DIF F lymphocytes, absolute count 2.10 x10'3 /uL 1.07-3 .43 Not Available [facility] (Lab) [address] [place], [address], 02/10/2024 20:24:51 02/10/20 24 02/10/2024 CBC/C OMPLE TE BLD COUNT W/DIF F monocytes, absolute count 0.35 x10'3 /uL 0.29-0 .99 Not Available [facility] (Lab) [address] [place], [address], 02/10/2024 20:24:51 02/10/20 24 02/10/2024 CBC/C OMPLE TE BLD COUNT W/DIF F eosinophils, absolute count 0.07 x10'3 /uL 0.02-0 .53 Not Available [facility] (Lab) [address] [place], [address], 02/10/2024 20:24:51 02/10/20 24 02/10/2024 CBC/C OMPLE TE BLD COUNT W/DIF F basophils, absolute count 0.01 x10'3 /uL 0.01-0 .08 Not Available [facility] (Lab) [address] [place], [address], 02/10/2024 20:24:51 02/10/20 24 02/10/2024 CBC/C OMPLE TE BLD COUNT W/DIF F immature granulocytes ,absolute 0.01 x10'3 /uL 0.00-0 .05 Not Available [facility] (Lab) [address] [place], [address], 02/10/2024 20:24:51 02/10/20 24 02/10/2024 CBC/C OMPLE TE BLD COUNT W/DIF F nucleated red blood cells 0.0 % -0 Not Available [facility] (Lab) [address] [place], [address], 02/10/2024 20:24:51 02/10/20 24 02/10/2024 CBC/C OMPLE TE BLD COUNT W/DIF F NRBC# 0.00 x10'3 /uL Not Available [facility] (Lab) [address] [place], [address], 02/10/2024 20:24:51 02/10/20 24 02/10/2024 COMPR EHENS HARRY METAB OLIC PANEL sodium 138 mmol/ L 137-14 5 Not Available [facility] (Lab) [address] [place], [address], 02/10/2024 20:33:27 02/10/20 24 02/10/2024 COMPR EHENS HARRY METAB OLIC PANEL potassium 4.4 mmol/ L 3.5-5. 1 Not Available [facility] (Lab) [address] [place], [address], 02/10/2024 20:33:27 02/10/20 24 02/10/2024 COMPR EHENS HARRY METAB OLIC PANEL chloride 107 mmol/ L 98-107 Not Available [facility] (Lab) [address] [place], [address], 02/10/2024 20:33:27 02/10/20 24 02/10/2024 COMPR EHENS HARRY METAB OLIC PANEL carbon dioxide 25 mmol/ L 22-30 Not Available [facility] (Lab) [address] [place], [address], 02/10/2024 20:33:27 02/10/20 24 02/10/2024 COMPR EHENS HARRY METAB OLIC PANEL anion gap 10.4 mmol/ L 14-22 low Not Available [facility] (Lab) [address] [place], [address], 02/10/2024 20:33:27 02/10/20 24 02/10/2024 COMPR EHENS HARRY METAB OLIC PANEL glucose 71 mg/dL 70-99 Not Available [facility] (Lab) [address] [place], [address], 02/10/2024 20:33:27 02/10/20 24 02/10/2024 COMPR EHENS HARRY METAB OLIC PANEL BUN 13 mg/dL 8-19 Not Available [facility] (Lab) [address] [place], [address], 02/10/2024 20:33:27 02/10/20 24 02/10/2024 COMPR EHENS HARRY METAB OLIC PANEL creatinine 1.05 mg/dL 0.66-1 .25 Not Available [facility] (Lab) [address] [place], [address], 02/10/2024 20:33:27 02/10/20 24 02/10/2024 COMPR EHENS HARRY METAB OLIC PANEL GFR >60 Refer ence Range : [place] ge GFR Healt hy Adult : >60 mL/mi n/1.7 3 m2 Chron ic Kidne y Disea se: 15-60 mL/mi n/1.7 3 m2 Kidne y Failu re: <15/m L/min /1.73 m2 www.n iddk. nih.g ov The MDRD study equat ion has not been valid ated in child krupa <18 years of age; pregn ant women ; the elder ly >85 years of age; or in some racia l or ethni c subgr oups, such as Hispa nics. Outsi de the valid ated ej eters , estim ated GFR is less accur ate, requi ring clini anay judgm ent on a case- by-ca se basis . Clini anay inter preta tion for other races and ages must be made by the clini dorota. The MDRD study equat ion has not been valid ated for the evalu ation of serum creat inine relat ed to nutri anton l statu s or medic ation usage . For perso ns <18 years of age, a pedia tric GFR calcu lator is avail able on the [facility] websi te: https ://genet garcía.alessandro lay/pr mohamud rankin s/kdo qi/gf r_cal culat or Not Available [facility] (Lab) [address] [place], [address], 02/10/2024 20:33:27 02/10/20 24 02/10/2024 COMPR EHENS HARRY METAB OLIC PANEL alkaline phosphatase 70 U/L 38-126 Not Available [facility] (Lab) [address] [place], [address], 02/10/2024 20:33:27 02/10/20 24 02/10/2024 COMPR EHENS HARRY METAB OLIC PANEL alanine aminotransfe rase 47 U/L 0-35 high Not Available [facility] (Lab) [address] [place], [address], 02/10/2024 20:33:27 02/10/20 24 02/10/2024 COMPR EHENS HARRY METAB OLIC PANEL aspartate aminotransfe rase 45 U/L 15-37 high Not Available [facility] (Lab) [address] [place], [address], 02/10/2024 20:33:27 02/10/20 24 02/10/2024 COMPR EHENS HARRY METAB OLIC PANEL bilirubin, total 0.60 mg/dL 0.20-1 .30 Not Available [facility] (Lab) [address] [place], [address], 02/10/2024 20:33:27 02/10/20 24 02/10/2024 COMPR EHENS HARRY METAB OLIC PANEL calcium 9.4 mg/dL 8.4-10 .2 Not Available [facility] (Lab) [address] [place], [address], 02/10/2024 20:33:27 02/10/20 24 02/10/2024 COMPR EHENS HARRY METAB OLIC PANEL total protein 8.6 g/dL 6.3-8. 2 high Not Available [facility] (Lab) [address] [place], [address], 02/10/2024 20:33:27 02/10/20 24 02/10/2024 COMPR EHENS HARRY METAB OLIC PANEL albumin 5.1 g/dL 3.4-5. 0 high Not Available [facility] (Lab) [address] [place], [address], 02/10/2024 20:33:27 02/10/20 24 02/10/2024 COMPR EHENS HARRY METAB OLIC PANEL globulin 3.5 g/dL 2.6-4. 2 Not Available [facility] (Lab) [address] [place], [address], 02/10/2024 20:33:27 02/10/20 24 02/10/2024 COMPR EHENS HARRY METAB OLIC PANEL A/G ratio 1.5 ratio 1.0-2. 0 Not Available [facility] (Lab) [address] [place], [address], 02/10/2024 20:33:27 02/10/20 24 02/10/2024 LIPID PANEL cholesterol 166 mg/dL 140-19 9 NIH RENATA NSUS RECOM MENDA TION FOR RUCHI STERO L: ADULT CHILD LOW RISK: <200 <170 BORDE RLINE : <200- 239 ----- HIGH RISK: >240 >200 Not Available [facility] (Lab) [address] [place], [address], 02/10/2024 20:33:29 02/10/20 24 02/10/2024 LIPID PANEL triglyceride s 62 mg/dL 0-150 NIH RENATA NSUS REPOR T RECOM MENDA TION FOR TRIGL YCERI MELI: ADULT CHILD LOW RISK: <150 ----- BODER LINE: 150-1 99 ----- HIGH RISK: >200 ----- Not Available [facility] (Lab) [address] [place], [address], 02/10/2024 20:33:29 02/10/20 24 02/10/2024 LIPID PANEL HDL cholesterol 72 mg/dL 40- Not Available [facility] (Lab) [address] [place], [address], 02/10/2024 20:33:29 02/10/20 24 02/10/2024 LIPID PANEL LDL cholesterol, calculated 82 mg/dL 0-130 NIH RENATA NSUS REPOR T RECOM MENDA TIONS FOR LDL: ADULT CHILD LOW RISK <130 <110 (OPTI MAL LDL) <100 ----- BORDE RLINE : 130-1 59 ----- HIGH RISK: >160 >130 A TRIGL YCERI DE RESUL T >400 INVAL IDATE S THE CALCU LATIO N FOR LDL FRACT IONAT ION - THE LDL RESUL T WILL NOT BE REPOR HELEN. Not Available [facility] (Lab) [address], [place], [address], 02/10/2024 20:33:29 02/10/20 24 , echoc ardio gram No observ ation record ed. [email or web address] [facility] [address] [place], [address], 08/10/2024 12:17:00 Result Notes None recorded. Problems Name Problem SNOMED Code Status Onset Date Resolution Date Notes Provider Name and Address Organization Details Recorded Time Abdominal pain 54184830 Completed 202102/10/2024 Violet whitaker RMA tameka, MD - [facility] [employer] [facility] 4 12:09:57 Fever 857076059 Completed 202102/10/2024 Violet whitaker RMA tameka, [employer] [facility] [employer] [facility] 4 12:09:56 Heart murmur 41465087 Active 2021 Violet whitaker RMA null, Sample6 [facility] [employer] [facility] 4 12:09:54 Flatulent dyspepsia 066146137 Active 2023 Alex Foster MD [address], [address], [place], [address], [employer] 4 12:31:12 Liver function tests outside reference range 454515110 Active 2023 Alex Foster MD [address], [address], [place], [address], [employer] 4 13:17:42 Constipatio n 10891401 Active 2024 Alex Foster MD [address], [address], [place], [address], [employer] 5 12:28:14 Problem Notes None recorded. Procedures Surgical History None recorded. Imaging Results Imaging Date Name Status LastModified by Organization Details LastModified Time 02/10/2024 US, echocardiogram completed [email or web address] [facility] [address] [place], [address], 08/10/2024 12:17:00 Procedure Notes None recorded. Medical Equipment None Reported. Allergies No known drug allergies Medications Name Sig Start Date Stop Date Status Note LastModified by Organization Details LastModified Time fluconazole 150 mg tablet 06/23 completed Not Available Not Available Not Available hydrocodone 5 mg-acetamin ophen 325 mg tablet TAKE 1 TABLET BY MOUTH EVERY 6 HOURS 06/23 completed Not Available Not Available Not Available metronidazo le 0.75 % (37.5 mg/5 gram) vaginal gel INSERT ONE APPLICATO RFUL VAGINALLY AT BEDTIME FOR 5 NIGHTS 06/23 completed Not Available Not Available Not Available metronidazo le 500 mg tablet 06/23 completed Not Available Not Available Not Available Tamiflu 75 mg capsule Take 1 capsule twice a day by oral route. 02/09 completed Not Available Not Available Not Available pantoprazol e 40 mg tablet,chaitanya yed release TAKE 1 TABLET BY MOUTH EVERY DAY IN THE MORNING 08/10 completed Not Available Not Available Not Available progesteron e micronized 200 mg capsule 06/23 completed Not Available Not Available Not Available ibuprofen 600 mg tablet TAKE 1 TABLET BY MOUTH EVERY 6 HOURS NEEDED FOR PAIN 06/23 completed Not Available Not Available Not Available Vitals Date Recorded Body mass index (BMI) Body height Oxygen saturation Oxygen saturation in Arterial blood by Pulse oximetry Heart rate Body weight Systolic blood pressure Diastolic blood pressure Provider Name and Address Organization Details Last Updated DateTime 3 30.2 kg/m2 157.48 cm 96 % 96 % 98 /min 77015.7 4 g 118 mm[Hg] 78 mm[Hg] Not Available [employer] 3 01:47:31 Date Recorded Body height Body mass index (BMI) Body weight Body temperature Heart rate Oxygen saturation Oxygen saturation in Arterial blood by Pulse oximetry Systolic blood pressure Diastolic blood pressure Provider Name and Address Organization Details Last Updated DateTime 4 157.48 cm 29.4 kg/m2 37965.3 7 g 98.7 [degF] 81 /min 94 % 94 % 138 mm[Hg] 74 mm[Hg] JIMY Crawford [employer] [facility] 4 12:21:06 Date Recorded Body height Body mass index (BMI) Body weight Body temperature Systolic blood pressure Diastolic blood pressure Provider Name and Address Organization Details Last Updated DateTime 5 157.48 cm 29.6 kg/m2 17587.9 6 g 97.7 [degF] 118 mm[Hg] 80 mm[Hg] JIMY Crawford [facility] 5 12:03:18 Social History Question Answer Notes LastModified by Organizat ion Details LastModified Time Tobacco Smoking Status Never Smoker Not Available [facility] 09/24/2022 01:47:05 Do You Have An Advance Directive? Yes [id number] Information not available 09/24/2022 What Is Your Level Of Alcohol Consumption? Occasional MIGRATION.48443 83791 Information not available 09/24/2022 What Is Your Level Of Caffeine Consumption? None MIGRATION.14208 78574 Information not available 09/24/2022 What Type Of Diet Are You Following? REGULAR MIGRATION.37432 42390 Information not available 09/24/2022 What Is The Highest Grade Or Level Of School You Have Completed Or The Highest Degree You Have Received? 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 No MIGRATION.08591 22184 Information not available 09/24/2022 Do You Use Insect Repellent Routinely? Yes Summer Time MIGRATION.05781 71029 Information not available 09/24/2022 Where Do You Live? [facility] MIGRATION.86937 22898 Information not available 09/24/2022 What Was The Date Of Your Most Recent Tobacco Screening? 06/23/2022 MIGRATION.51121 01998 Information not available 09/24/2022 Have You Ever Been Counseled For Unhealthy Alcohol Use? No MIGRATION.47281 51546 Information not available 09/24/2022 Do You Have Any Pets? Yes MIGRATION.75347 99348 Information not available 09/24/2022 What Is Your Relationship Status? MIGRATION.61086 37767 Information not available 09/24/2022 Do You Have Smoke And Carbon Monoxide Detectors In Your Home? Yes MIGRATION.65586 31383 Information not available 09/24/2022 Are You Passively Exposed To Smoke? No MIGRATION.00544 76885 Information not available 09/24/2022 Are There Any Smokers In Your House? No MIGRATION.05648 47192 Information not available 09/24/2022 Do You Feel Stressed (tense, Restless, Nervous, Or Anxious, Or Unable To Sleep At Night)? [id number] MIGRATION.04107 42732 Information not available 09/24/2022 Do You Use Any Illicit Or Recreational Drugs? No MIGRATION.28662 19591 Information not available 09/24/2022 Do You Use Sunscreen Routinely? No MIGRATION.70098 17737 Information not available 09/24/2022 Has Tobacco Cessation Counseling Been Provided? No MIGRATION.19530 74996 Information not available 09/24/2022 Have You Recently Traveled Abroad? Yes [place] End Of Apr 2022 MIGRATION.97509 25818 Information not available 09/24/2022 Do You Have Any Dietary Restrictions? No MIGRATION.05284 16313 Information not available 09/24/2022 Do You Or Have You Ever Used Any Other Forms Of Tobacco Or Nicotine? No MIGRATION.76362 93043 Information not available 09/24/2022 Sex: Female Functional Status Question Answer Note LastModified by Organizat ion Details LastModified Time What is your exercise level? Occasional [id number] Information not available 09/24/2022 Mental Status None recorded. Family History Relationship Description Onset Age of this Age Resolved Age Notes LastModified by Organization Details LastModified Time Mother Essential hypertension [id number] Not available 09/24/2022 01:47:24 Maternal Grandmother History of thyroid disorder MIGRATION.393 [id number] Not available 09/24/2022 01:47:24 Medical History No medical history recorded. Gynecological HistoryNo gynecological history recorded. Obstetrics History GPAL:G 0 P 0 0 0 0 Immunizations Vaccine Type Date Status Note Provider Nam e and Address Organization Details Recorded Time Td (adult), 2 Lf tetanus toxoid, preservative free, adsorbed completed Alex Foster MD [address], [place], [address], [place] - [facility] 02/10/2024 12:55:12 Past Encounters Encounter ID Performer Location Encounter Start Date Encounter Closed Date Diagnosis/Indication Diagnosis SNOMED-CT Code Diagnosis ICD10 Code Diagnosis Note [id number] [facility] [address] [place] [address] 06/23/2022 00:00:00 06/23/2022 16:56:13 [id number] Alex Foster MD [facility] Internal Med [facility] [address] [facility] [place] [address] 02/10/2024 12:02:43 02/10/2024 12:58:25 Flatulent dyspepsia 766915911 K30 she has never tried Heart murmur 92626342 R0 1.1 Adult [facility] th examination 963664851 Z00.00 Z13.220 Administra tion of diphtheria and tetanus vaccine 16420556 Z23 [id number] Alex Foster MD [facility] Internal [facility] [address] [facility] [place] [address] 08/10/2024 11:53:01 08/10/2024 12:39:55 Heart murmur 34875468 R01.1 Constipation 12968029 K5 9.00 start Linzess 148 mg qd, samplesshe will call me in 2 weeks, may adjust the dose if needed Health Concerns Section Related Observation LastModified by Organization Detai ls LastModified Time None Recorded Concern Status LastModified by Organization Details LastModified Time None Recorded Advance Directives Directive Y: Payers Encounter Date Sequence Insurance Name Policy Number Policy Santos Covered Member ID Santos Member ID Guarantor Name 02/10/2024 1 [facility] [id number] Nadia Donahue [id number] Nadia Donahue 08/10/2024 1 [facility] [id number] Nadia Donahue [id number] Nadia Donahue Notes Date Note Type Note Provider Name and Address Organization Details Recorded Time 02/10/2024 text/html Pt is here today for her annual visit. She has not been seen since 06/23/22.Gassy and bloated when not on her menstrual cyclerandomly gets a dry cough and ears are extremely itchy, after cutting the grass she will take a benadryl but all that does is make her sleepRandomly will gets SOB Heart Murmur- did not get echo Alex Foster MD [address], [place], [address], [employer] 02/10/2024 12:55:22 08/10/2024 text/html Pt is here today for her routine follow upPT IS NOT FASTING ( [facility] ) Heart Murmur- did not get echo- Said no one called but if she still needs it she will make sure it gets done LFT- advised to watch diet and lose weight Overweight- has not lost weight Dyspepsia- has tried pantoprazole, no more symptoms Constipation- constipation with lots of gasGets BM once a month, she has this bm habbit since childhood Alex Foster MD [address], [place], [address], [employer] 08/10/2024 12:31:00 OBGyn Episode No OBEpisode recorded.
== END 2024-09-01 12:56 | disposition home or self-care (01) ==
LOC: ANHCARD 12:56
PROVIDERS: Visit Provider Internal Medicine
DX: R01.1 Cardiac murmur, unspecified (principal)
CPT/HCPCS: 93306